=== PATIENT | female | born 1990 | race Caucasian/White ===

== ENCOUNTER → 2016-11-04 08:53 | Outpatient (CLI) | payer MEDICAID ==
[2016-08-26 00:15] VITALS: BMI 36.5
== END | disposition home or self-care (01) ==
LOC: D.US 10-30 10:30
DX: N63 Unspecified lump in breast (principal)

== ENCOUNTER 2017-02-01 10:14 | Emergency (ER) | payer MEDICAID ==
[2016-08-26 00:15] VITALS: BMI 36.5
[2017-02-01 11:01] LABS: BASOPHILS 0.2 % (0-2); HEMATOCRIT 38.9 % (36.0-48.0); HEMOGLOBIN 12.7 g/dL (12-16); LYMPHOCYTES 25.5 % (15-50); MCH 28.5 pg (26.0-34.0); MCHC 32.6 g/dL (31.0-37.0); MCV 87.4 fL (80.0-100.0); MEAN PLATELET VOLUME 10.2 fL (7.4-10.4); NEUTROPHILS 66.3 % (40-80); RBC 4.45 10x6/uL (4.00-5.40); RDW 12.9 % (11.5-14.5); WBC 4.9 10x3/uL (4.8-10.8)
[2017-02-01 11:02] LABS: PLATELET COUNT 269 10x3/uL (130-400)
== END 2017-02-01 11:52 | disposition home or self-care (01) ==
LOC: D.ER 10:14
PROVIDERS: Nurse Practitioner Acute Care
DX: J20.9 Acute bronchitis, unspecified (principal); F31.89 Other bipolar disorder; F60.9 Personality disorder, unspecified

== ENCOUNTER 2017-02-24 09:14 | Emergency (ER) | payer OTHER ==
[2016-08-26 00:15] VITALS: BMI 36.5
== END 2017-02-24 10:55 | disposition home or self-care (01) ==
LOC: D.ER 09:14
DX: K08.89 Other specified disorders of teeth and supporting structures (principal); S02.5XXA Fracture of tooth (traumatic), initial encounter for closed fracture; X58.XXXA Exposure to other specified factors, initial encounter; Y93.89 Activity, other specified; Y92.89 Other specified places as the place of occurrence of the external cause

== ENCOUNTER 2017-05-10 18:13 | Emergency (ER) | payer OTHER ==
[2016-08-26 00:15] VITALS: BMI 36.5
[2017-05-10 20:52] LABS: HCG URINE NEGATIVE (NEGATIVE)
== END 2017-05-10 20:52 | disposition home or self-care (01) ==
LOC: D.ER 18:13
PROVIDERS: Nurse Practitioner Family
DX: S89.91XA Unspecified injury of right lower leg, initial encounter (principal); V49.9XXA Car occupant (driver) (passenger) injured in unspecified traffic accident, initial encounter; Y93.89 Activity, other specified; Y92.410 Unspecified street and highway as the place of occurrence of the external cause; S16.1XXA Strain of muscle, fascia and tendon at neck level, initial encounter; S39.012A Strain of muscle, fascia and tendon of lower back, initial encounter; F17.200 Nicotine dependence, unspecified, uncomplicated

== ENCOUNTER 2017-11-27 09:18 | Emergency (ER) | payer OTHER ==
[2016-08-26 00:15] VITALS: BMI 36.5
== END 2017-11-27 10:45 | disposition home or self-care (01) ==
LOC: D.ER 09:18
DX: K08.89 Other specified disorders of teeth and supporting structures (principal); K02.9 Dental caries, unspecified

== ENCOUNTER 2018-01-04 22:57 | Emergency (ER) | payer OTHER ==
[2016-08-26 00:15] VITALS: BMI 36.5
[2018-01-04 23:22] LABS: APPEARANCE CLOUDY (CLEAR); BILIRUBIN NEGATIVE (NEGATIVE); COLOR YELLOW (YELLOW); GLUCOSE NEGATIVE (NEGATIVE); KETONE NEGATIVE (NEGATIVE); NITRITE NEGATIVE (NEGATIVE); PROTEIN 3+ mg/dL (NEGATIVE); SPECIFIC GRAVITY 1.015 (1.005-1.020); UROBILINOGEN NORMAL (NORMAL)
[2018-01-04 23:25] LABS: BACTERIA MODERATE /hpf (NONE SEEN); EPITHELIAL CELLS 0-5 /hpf (0-5); RED CELLS - URINE 0-5 /hpf (0-5)
[2018-01-05 00:19] LABS: HCG URINE NEGATIVE (NEGATIVE)
== END 2018-01-05 00:53 | disposition home or self-care (01) ==
LOC: D.ER 22:57
PROVIDERS: Family Medicine; Physician Assistant
DX: N76.0 Acute vaginitis (principal); N39.0 Urinary tract infection, site not specified; F15.90 Other stimulant use, unspecified, uncomplicated; F17.200 Nicotine dependence, unspecified, uncomplicated

== ENCOUNTER 2020-11-29 18:21 | Emergency (ER) | payer MEDICAID ==
[~2020-11-29] VITALS: Ht 317.5 cm; Wt 72.6 kg
[~2020-11-29 18:21] MED LIST: CYCLOBENZAPRINE10 MG PO; ULTRAM50 MG PO
[2020-11-29 18:33] VITALS: Ht 317.5 cm; Wt 72.6 kg
[2020-11-29 19:13] LABS: HCG URINE NEGATIVE (NEGATIVE)
[2020-11-29 19:20] LABS: BILIRUBIN NEGATIVE (NEGATIVE); KETONE LARGE mg/dL (NEGATIVE); NITRITE NEGATIVE (NEGATIVE); UROBILINOGEN NORMAL mg/dL (< 2); WHITE CELLS - URINE OCC HPF (0-4)
[2020-11-29 19:21] LABS: BACTERIA MANY HPF (NONE SEEN)
[2020-11-29 19:23] LABS: UDS - AMPHET POSITIVE QUAL (NEGATIVE); UDS - BARB NEGATIVE QUAL (NEGATIVE); UDS - BENZO NEGATIVE QUAL (NEGATIVE); UDS - COCAINE NEGATIVE QUAL (NEGATIVE); UDS - OPIATE NEGATIVE QUAL (NEGATIVE); UDS - PCP NEGATIVE QUAL (NEGATIVE); UDS - THC NEGATIVE QUAL (NEGATIVE)
[2020-11-29 19:32] LABS: BASOPHILS 0.1 % (0-2); EOSINOPHILS 0.1 % (0-7); HEMATOCRIT 39.7 % (36.0-48.0); HEMOGLOBIN 13.6 g/dL (12-16); IMMATURE GRANULOCYTES 0.2 % (0-5); LYMPHOCYTE ABS# 1.69 10x3/uL (1.18-3.74); LYMPHOCYTES 16.4 % (15-50); MCH 29.6 pg (26.0-34.0); MCHC 34.3 g/dL (31.0-37.0); MCV 86.5 fL (80.0-100.0); MEAN PLATELET VOLUME 9.4 fL (7.4-10.4); MONOCYTES 9.6 % (2-11); NEUTROPHIL ABS# 7.56 10x3/uL (1.56-6.13); NEUTROPHILS 73.6 % (40-80); PLATELET COUNT 304 10x3/uL (130-400); RBC 4.59 10x6/uL (4.00-5.40); RDW 12.9 % (11.5-14.5); WBC 10.3 10x3/uL (4.8-10.8)
[2020-11-29 19:41] LABS: CALC OSMOLALITY 275 mosm/kg (275-300); CALCIUM 9.3 mg/dL (8.5-10.1); CARBON DIOXIDE 22.6 mmol/L (21.0-32.0); CHLORIDE - SERUM 98 mmol/L (98-107); CREATININE - SERUM 0.7 mg/dL (0.6-1.3); GLUCOSE 108 mg/dL (74-106); POTASSIUM - SERUM 3.7 mmol/L (3.5-5.1); SODIUM 136 mmol/L (136-145); UREA NITROGEN 22 mg/dL (7-18); eGFR NON AFRICAN AMERICAN > 90 mL/min (90-120)
[2020-11-29 19:56] LABS: ACETAMINOPHEN < 10.0 ug/mL (10.0-30.0); ALBUMIN 4.3 g/dL (3.4-5.0); ALKALINE PHOSPHATASE 67 U/L (30-120); ALT (SGPT) 25 U/L (10-68); BILIRUBIN - TOTAL 1.54 mg/dL (0.2-1.3); CKMB 1.2 U/L (0.0-3.6); CREATINE KINASE 101 UL (21-215); MAGNESIUM - SERUM 1.8 mg/dL (1.8-2.4); PROTEIN - SERUM 7.9 g/dL (6.4-8.2)
[2020-11-29] MEDS ORDERED: MACROBID100 MG PO (21:25)
[2020-11-29] MEDS ORDERED: CEPHALEXIN500 M1 PO (21:25)
[2020-11-29 21:33] VITALS: BP 130/89
== END 2020-11-29 21:33 | disposition home or self-care (01) ==
LOC: D.ER 18:21
PROVIDERS: Emergency Medicine; Family Medicine
DX: F15.90 Other stimulant use, unspecified, uncomplicated (principal)